=== PATIENT | male | born 1955 | race Caucasian/White ===

== ENCOUNTER → 2017-02-04 | Outpatient (CLI) | payer BC ==
[2017-02-04 10:06] LABS: ALANINE AMINOTRANSFERASE 27 IU/L (13-61); ALBUMIN 4.2 g/dL (3.4-5.0); ANION GAP 13; CALCIUM 8.6 mg/dL (8.5-10.1); CARBON DIOXIDE 24 mEq/L (21-32); CHLORIDE 106 mEq/L (98-107); CREATINE KINASE 382 IU/L (39-308); HDL CHOLESTEROL 53 mg/dL (40-59); INDEX HEMOLYSI 1 (1-3); INDEX ICTERIC 1 (1-4); INDEX LIPEMIC 1 (1-3); LDL CHOLESTEROL 102 mg/dL (5-100); TRIGLYCERIDE 143 mg/dL (0-150); UREA NITROGEN BLOOD 18 mg/dL (7-21); eGFR > 60 mL/min (>60)
== END ==
LOC: LAB 09:17
PROVIDERS: ATTEND Specialist
DX: I11.9 Hypertensive heart disease without heart failure (principal); I25.82 Chronic total occlusion of coronary artery; E78.2 Mixed hyperlipidemia; R94.31 Abnormal electrocardiogram [ECG] [EKG]
CPT/HCPCS: 36415; 80053; 80061; 82550

== ENCOUNTER → 2017-05-13 | Outpatient (CLI) | payer BC ==
[2017-05-13 13:02] LABS: CARBON DIOXIDE 24 mEq/L (21-32); CHLORIDE 105 mEq/L (98-107); CREATINE KINASE 374 IU/L (39-308); HDL CHOLESTEROL 52 mg/dL (40-59); LDL CHOLESTEROL 89 mg/dL (5-100)
== END | disposition home or self-care (01) ==
LOC: LAB 11:44
PROVIDERS: ATTEND Specialist
DX: I11.9 Hypertensive heart disease without heart failure (principal); I25.82 Chronic total occlusion of coronary artery; E78.2 Mixed hyperlipidemia
CPT/HCPCS: 36415; 80053; 80061; 82550

== ENCOUNTER → 2017-07-18 | Outpatient (CLI) | payer BC ==
[2017-07-18 08:53] LABS: CARBON DIOXIDE 23 mEq/L (21-32); CHLORIDE 107 mEq/L (98-107); HDL CHOLESTEROL 48 mg/dL (40-59); LDL CHOLESTEROL 89 mg/dL (5-100)
== END | disposition home or self-care (01) ==
LOC: LAB 08:08
PROVIDERS: ATTEND Internal Medicine Critical Care Medicine
DX: I11.9 Hypertensive heart disease without heart failure (principal); E78.2 Mixed hyperlipidemia; I25.10 Atherosclerotic heart disease of native coronary artery without angina pectoris
CPT/HCPCS: 36415; 80053; 80061

== ENCOUNTER → 2017-08-12 | Outpatient (CLI) | payer BC | END | disposition home or self-care (01) | LOC: LAB 08:42 | PROVIDERS: ATTEND Internal Medicine Critical Care Medicine | DX: I10 Essential (primary) hypertension (principal); E78.5 Hyperlipidemia, unspecified; N40.0 Benign prostatic hyperplasia without lower urinary tract symptoms | CPT/HCPCS: 36415; 80061; 80076; 83036 ==

== ENCOUNTER → 2017-09-19 | Outpatient (CLI) | payer BC ==
[2017-09-19 09:51] LABS: CARBON DIOXIDE 27 mEq/L (21-32); CHLORIDE 105 mEq/L (98-107); HDL CHOLESTEROL 52 mg/dL (40-59); LDL CHOLESTEROL 76 mg/dL (5-100)
== END | disposition home or self-care (01) ==
LOC: LAB 09:01
PROVIDERS: ATTEND Specialist
DX: I10 Essential (primary) hypertension (principal)
CPT/HCPCS: 36415; 80053; 80061

== ENCOUNTER → 2018-01-28 | Outpatient (CLI) | payer BC ==
[2018-01-28 09:49] LABS: BASOPHILS % 0.5 % (0.0-2.0); EOSINOPHILS % 3.4 % (0.0-5.0); HEMATOCRIT. 42.2 % (42.0-52.0); HEMOGLOBIN. 14.7 g/dL (14.0-18.0); LYMPHOCYTES % 32.5 % (20.0-50.0); MEAN CORPUSCULAR HEMOGLOBIN 31.5 pg (28.0-32.0); MEAN CORPUSCULAR VOLUME 90.6 fL (80.0-94.0); MEAN PLATELET VOLUME 7.5 fl (7.4-10.4); MONOCYTES % 8.3 % (2.0-8.0); NEUTROPHILS % 55.3 % (40.0-76.0); PLATELET 279 x1000/uL (130-400); RED BLOOD CELL COUNT 4.65 mill/uL (4.7-6.1); RED CELL DISTRIBUTION WIDTH 13.8 % (11.6-14.6)
[2018-01-28 10:14] LABS: CHLORIDE 107 mEq/L (98-107)
[2018-01-28 10:23] LABS: LDL CHOLESTEROL 69 mg/dL (5-100)
[2018-01-28 10:25] LABS: HDL CHOLESTEROL 53 mg/dL (40-59)
[2018-01-28 10:26] LABS: T4 FREE 1.46 ng/dL (0.76-1.46)
== END | disposition home or self-care (01) ==
LOC: LAB 09:23
PROVIDERS: ATTEND Specialist
DX: E78.2 Mixed hyperlipidemia (principal); E03.9 Hypothyroidism, unspecified; I25.10 Atherosclerotic heart disease of native coronary artery without angina pectoris; I11.9 Hypertensive heart disease without heart failure
CPT/HCPCS: 36415; 80053; 80061; 84439; 84443; 84481; 85025

== ENCOUNTER → 2019-10-08 | Outpatient (CLI) | payer BC ==
[2019-10-08 12:50] LABS: BASOPHILS % 2.1 % (0.0-2.0); EOSINOPHILS % 2.7 % (0.0-5.0); HEMATOCRIT. 38.4 % (42.0-52.0); LYMPHOCYTES % 33.9 % (20.0-50.0); MEAN CORPUSCULAR HEMOGLOBIN 31.5 pg (28.0-32.0); MEAN CORPUSCULAR VOLUME 92.7 fL (80.0-94.0); MEAN PLATELET VOLUME 7.4 fl (7.4-10.4); MONOCYTES % 8.9 % (2.0-8.0); NEUTROPHILS % 52.4 % (40.0-76.0); PLATELET 261 x1000/uL (130-400); RED BLOOD CELL COUNT 4.14 mill/uL (4.7-6.1); RED CELL DISTRIBUTION WIDTH 13.1 % (11.6-14.6)
[2019-10-08 12:55] LABS: CHLORIDE 107 mEq/L (98-107)
[2019-10-08 13:05] LABS: LDL CHOLESTEROL 77 mg/dL (5-100)
[2019-10-08 13:06] LABS: HDL CHOLESTEROL 50 mg/dL (40-59)
[2019-10-08 13:08] LABS: CLARITY URINE CLEAR (CLEAR); COLOR URINE YELLOW (YELLOW); KETONES URINE NEGATIVE (NEGATIVE); LEUKOCYTE ESTERASE URINE NEGATIVE (NEGATIVE); NITRITE URINE NEGATIVE (NEGATIVE); OCCULT BLOOD URINE NEGATIVE (NEGATIVE); PH URINE 5.5 (4.5-8.0); PROTEIN URINE NEGATIVE (NEGATIVE); SPECIFIC GRAVITY URINE 1.012 (1.005-1.030); UROBILINOGEN URINE 0.2 E.U./dL (0.2-1.0)
== END | disposition home or self-care (01) ==
LOC: LAB 11:58
PROVIDERS: ATTEND Family Medicine Adult Medicine
DX: N39.0 Urinary tract infection, site not specified (principal)
CPT/HCPCS: 36415; 80048; 80061; 80076; 81003; 83036; 84153; 84443; 85025; G0103

== ENCOUNTER → 2019-11-26 | Outpatient (CLI) | payer BC ==
[2019-11-26 13:28] LABS: CHLORIDE 110 mEq/L (98-107)
== END | disposition home or self-care (01) ==
LOC: LAB 08:03
PROVIDERS: ATTEND Urology
DX: R31.0 Gross hematuria (principal)
CPT/HCPCS: 36415; 80053; 84153; G0103

== ENCOUNTER → 2019-12-21 | Outpatient (CLI) | payer BC | END | disposition home or self-care (01) | LOC: CT 12:58 | PROVIDERS: ATTEND Urology | DX: N40.0 Benign prostatic hyperplasia without lower urinary tract symptoms (principal); R31.0 Gross hematuria | CPT/HCPCS: 74178; Q9967 ==

== ENCOUNTER → 2020-07-27 | Outpatient (CLI) | payer BC ==
[2020-07-27 10:37] LABS: CHLORIDE 108 mEq/L (98-107)
[2020-07-27 10:41] LABS: BASOPHILS % 1.1 % (0.0-2.0); HEMATOCRIT. 42.7 % (42.0-52.0); HEMOGLOBIN. 14.5 g/dL (14.0-18.0); LYMPHOCYTES % 33.1 % (20.0-50.0); MEAN CORPUSCULAR HEMOGLOBIN 31.7 pg (28.0-32.0); MEAN CORPUSCULAR VOLUME 93.4 fL (80.0-94.0); MEAN PLATELET VOLUME 7.6 fl (7.4-10.4); MONOCYTES % 8.6 % (2.0-8.0); NEUTROPHILS % 54.2 % (40.0-76.0); PLATELET 252 x1000/uL (130-400); RED BLOOD CELL COUNT 4.57 mill/uL (4.7-6.1); RED CELL DISTRIBUTION WIDTH 12.9 % (11.6-14.6)
[2020-07-27 10:44] LABS: LDL CHOLESTEROL 92 mg/dL (5-100)
[2020-07-27 10:45] LABS: HDL CHOLESTEROL 50 mg/dL (40-59); TOTAL IRON BINDING CAPACITY 325 ug/dL (250-450)
[2020-07-27 10:48] LABS: T4 FREE 1.48 ng/dL (0.76-1.46)
[2020-07-27 11:17] LABS: FOLIC ACID (FOLATE) SERUM 15.8 ng/mL (>5.38)
[2020-07-27 11:23] LABS: PROSTRATE SPECIFIC AG TOTAL 1.29 ng/mL (0.0-4.0)
== END | disposition home or self-care (01) ==
LOC: LAB 09:57
PROVIDERS: ATTEND Specialist
DX: Z00.00 Encounter for general adult medical examination without abnormal findings (principal); D64.9 Anemia, unspecified
CPT/HCPCS: 36415; 80053; 80061; 82306; 82607; 82728; 82746; 83036; 83540; 83550; 84153; 84439; 84443; 84481; 85025; G0103

== ENCOUNTER → 2020-09-18 | Outpatient (CLI) | payer BC ==
[~2020-09-18] MED LIST: ATOR40TA70 PO; BENZ100C86 PO; LEVO125T PO; VERA240C2 PO
[2020-09-18 15:37] LABS: BASOPHILS % 0.3 % (0.0-2.0); HEMATOCRIT. 40.6 % (42.0-52.0); HEMOGLOBIN. 13.6 g/dL (14.0-18.0); LYMPHOCYTES % 11.7 % (20.0-50.0); MEAN CORPUSCULAR HEMOGLOBIN 30.9 pg (28.0-32.0); MEAN CORPUSCULAR VOLUME 91.9 fL (80.0-94.0); MEAN PLATELET VOLUME 8.1 fl (7.4-10.4); MONOCYTES % 8.1 % (2.0-8.0); NEUTROPHILS % 79.9 % (40.0-76.0); PLATELET 215 x1000/uL (130-400); RED BLOOD CELL COUNT 4.42 mill/uL (4.7-6.1); RED CELL DISTRIBUTION WIDTH 13.1 % (11.6-14.6)
[2020-09-18 15:49] LABS: CHLORIDE 101 mEq/L (98-107)
[2020-09-18 15:55] LABS: LDL CHOLESTEROL 103 mg/dL (5-100)
[2020-09-18 15:56] LABS: HDL CHOLESTEROL 39 mg/dL (40-59)
[2020-09-18 15:59] LABS: T4 FREE 1.59 ng/dL (0.76-1.46)
[2020-09-18 16:04] LABS: TOTAL IRON BINDING CAPACITY 236 ug/dL (250-450)
[2020-09-18 16:21] LABS: FOLIC ACID (FOLATE) SERUM 19.7 ng/mL (>5.38)
== END | disposition home or self-care (01) ==
LOC: RAD 14:39
PROVIDERS: ATTEND Family Medicine Adult Medicine
DX: Z00.00 Encounter for general adult medical examination without abnormal findings (principal); J06.9 Acute upper respiratory infection, unspecified; E11.8 Type 2 diabetes mellitus with unspecified complications; D64.9 Anemia, unspecified
CPT/HCPCS: 36415; 71045; 80053; 80061; 82306; 82607; 82728; 82746; 83036; 83540; 83550; 84439; 84443; 84481; 85025; 87804

== ENCOUNTER 2020-09-19 13:10 | Inpatient (IN) | payer BC ==
[~2020-09-19] VITALS: Ht 177.8 cm; Wt 81.8 kg
[2020-09-19] MEDS ORDERED: SODIUM CHLORIDE 0.9% 1,000 ML IV ONE (15:15)
[2020-09-19] MEDS ORDERED: DEXAMETHASONE 10 MG/ML VIAL IV ONE (15:15)
[2020-09-19] MEDS ORDERED: AZITHROMYCIN 500 MG in DEXT 5% WATER 250 ML IV ONE (15:15)
[2020-09-19] MEDS ORDERED: CEFTRIAXONE 1 G PREMIX 50 ML IV ONE (15:15)
[2020-09-19] MEDS ORDERED: ACETAMINOPHEN 325MG TABLET PO ONE (15:30)
[2020-09-19 15:34] LABS: BG BASE EXCESS -3.2 mmol/L (-2.0-2.0); BG CARBOXYHEMOGLOBIN 0.4 % (0.5-1.5); BG DEOXYHEMOGLOBIN 16.1 % (0.0-5.0); BG FRACTION INSPIRED OXYGEN 21; BG HCO3 ACT 17.5 mmol/L (22.0-26.0); BG METHEMOGLOBIN 0.1 % (0.0-1.5); BG OXYGEN SATURATION 83.8 % (92.0-98.5); BG OXYHEMOGLOBIN 83.4 % (94.0-97.0); BG PCO2 21.7 mmHg (35.0-45.0); BG PH 7.524 (7.350-7.450); BG PO2 44.6 mmHg (75.0-100.0); BG SAMPLE SITE RIGHT BRACHIAL; BG TOTAL HEMOGLOBIN 13.4 g/dL (12.0-18.0); BG VENT MODE ROOM AIR
[2020-09-19 15:39] LABS: BASOPHILS % 0.3 % (0.0-2.0); HEMATOCRIT. 42.2 % (42.0-52.0); HEMOGLOBIN. 13.9 g/dL (14.0-18.0); LYMPHOCYTES % 11.6 % (20.0-50.0); MEAN CORPUSCULAR HEMOGLOBIN 30.6 pg (28.0-32.0); MEAN CORPUSCULAR VOLUME 92.9 fL (80.0-94.0); MEAN PLATELET VOLUME 8.4 fl (7.4-10.4); MONOCYTES % 5.9 % (2.0-8.0); NEUTROPHILS % 82.2 % (40.0-76.0); PLATELET 267 x1000/uL (130-400); RED BLOOD CELL COUNT 4.55 mill/uL (4.7-6.1)
[2020-09-19 15:44] LABS: CHLORIDE 100 mEq/L (98-107)
[2020-09-19 15:53] LABS: CREATINE KINASE 754 IU/L (39-308)
[2020-09-19 15:56] LABS: D-DIMER 0.43 mg/L FEU (<0.50); PROTHROMBIN TIME 10.4 sec (9.6-11.0)
[2020-09-19] MEDS ORDERED: CEFTRIAXONE 1 G PREMIX 50 ML IV SCH (17:00)
[2020-09-19] MEDS ORDERED: AZITHROMYCIN 500 MG in DEXT 5% WATER 250 ML IV SCH (17:00)
[2020-09-19] MEDS: ALBUTEROL 6.7GM HFA INHALER ORI SCH (17:43)
[2020-09-19] MEDS: ZINC SULFATE 220 MG ( 50 ) CAPSULE PO SCH (19:30)
[2020-09-19] MEDS: FAMOTIDINE 20MG TABLET PO SCH (21:00)
[2020-09-20] VITALS: BP 131/77
[2020-09-20 00:23] VITALS: BP 131/77
[2020-09-20] MEDS ORDERED: ATOR40TA70 PO (00:58)
[2020-09-20] MEDS ORDERED: VERA240C2 PO (00:58)
[2020-09-20] MEDS ORDERED: BENZ100C86 PO (00:58)
[2020-09-20] MEDS ORDERED: LEVO125T PO (00:58)
[2020-09-20] MEDS: ALBUTEROL 6.7GM HFA INHALER ORI SCH ×4 (01:12→20:20)
[2020-09-20 04:00] VITALS: BP 129/73
[2020-09-20] MEDS ORDERED: CLONIDINE 0.1MG TABLET PO PRN (04:00)
[2020-09-20] MEDS ORDERED: HYDROCODONE/ACETAMINOPHEN 5/325MG TABLET PO PRN (04:00)
[2020-09-20] MEDS ORDERED: ACETAMINOPHEN 325MG TABLET PO PRN (04:00)
[2020-09-20] MEDS ORDERED: VERAPAMIL HCL PO SCH (04:15)
[2020-09-20] MEDS: LEVOTHYROXINE SODIUM 125MCG TABLET PO SCH (05:55)
[2020-09-20 08:00] VITALS: BP 135/86
[2020-09-20] MEDS: ZINC SULFATE 220 MG ( 50 ) CAPSULE PO SCH (08:56)
[2020-09-20] MEDS: VERAPAMIL HCL 120MG TABLET PO SCH (08:56)
[2020-09-20] MEDS: DEXAMETHASONE 10 MG/ML VIAL IV SCH (08:57)
[2020-09-20] MEDS: ENOXAPARIN 40MG/0.4ML SYR SUBCUT SCH ×2 (09:00→16:01)
[2020-09-20 12:00] VITALS: BP 120/73
[2020-09-20 12:36] LABS: CHLORIDE 106 mEq/L (98-107)
[2020-09-20 12:37] LABS: HEMOGLOBIN. 12.3 g/dL (14.0-18.0); MEAN CORPUSCULAR HEMOGLOBIN 31.3 pg (28.0-32.0); MEAN CORPUSCULAR VOLUME 91.4 fL (80.0-94.0); MEAN PLATELET VOLUME 8.4 fl (7.4-10.4); PLATELET 237 x1000/uL (130-400); RED BLOOD CELL COUNT 3.94 mill/uL (4.7-6.1)
[2020-09-20 12:45] LABS: T4 FREE 1.69 ng/dL (0.76-1.46)
[2020-09-20] MEDS: CEFTRIAXONE 1,000 MG in DEXTROSE 5% WATER 50 ML IV SCH (13:12)
[2020-09-20] MEDS ORDERED: AZITHROMYCIN 500MG in DEXTROSE 5% WATER 250ML IV SCH (14:00)
[2020-09-20] MEDS: CHOLECALCIFEROL (D3) 1000 UNIT TABLET PO SCH (15:36)
[2020-09-20 20:00] VITALS: BP 132/79
[2020-09-20] MEDS: FAMOTIDINE 20MG TABLET PO SCH (20:55)
[2020-09-20] MEDS: DOXYCYCLINE HYCLATE 100MG CAPSULE PO SCH (20:56)
[2020-09-20] MEDS ORDERED: ATORVASTATIN CALCIUM 40MG TABLET PO SCH (21:00)
[2020-09-21 00:28] VITALS: BP 139/82
[2020-09-21 04:00] VITALS: BP 151/78
[2020-09-21] MEDS: ALBUTEROL 6.7GM HFA INHALER ORI SCH ×3 (06:00→11:34)
[2020-09-21] MEDS: LEVOTHYROXINE SODIUM 125MCG TABLET PO SCH (06:16)
[2020-09-21 08:00] VITALS: BP 157/64
[2020-09-21 08:20] LABS: PLATELET ESTIMATE NORMAL
[2020-09-21] MEDS: DEXAMETHASONE 10 MG/ML VIAL IV SCH (08:34)
[2020-09-21] MEDS: DOXYCYCLINE HYCLATE 100MG CAPSULE PO SCH (08:35)
[2020-09-21] MEDS: CHOLECALCIFEROL (D3) 1000 UNIT TABLET PO SCH (08:35)
[2020-09-21] MEDS: ZINC SULFATE 220 MG ( 50 ) CAPSULE PO SCH (08:35)
[2020-09-21] MEDS: VERAPAMIL HCL 120MG TABLET PO SCH (08:35)
[2020-09-21] MEDS: ENOXAPARIN 40MG/0.4ML SYR SUBCUT SCH (08:36)
[2020-09-21] MEDS ORDERED: REMDESIVIR 200 MG in SODIUM CHLORIDE 0.9% 250 ML IV ONE (10:15)
[2020-09-21] MEDS ORDERED: ALBU6.7H9 INH (11:20)
[2020-09-21] MEDS ORDERED: DEXA6TAB MT (11:20)
[2020-09-21 12:00] VITALS: BP 127/75
[2020-09-21] MEDS ORDERED: DOXY100C2 PO (12:00)
[2020-09-21 12:42] VITALS: BP 124/75
[2020-09-21] MEDS: CEFTRIAXONE 1,000 MG in DEXTROSE 5% WATER 50 ML IV SCH (12:54)
[2020-09-21 13:14] LABS: HEPATITIS B SURFACE ANTIGEN NEGATIVE
[2020-09-21 13:43] LABS: HEPATITIS A AB IGM NEGATIVE (NEGATIVE)
[2020-09-21] MEDS ORDERED: DOXAZOSIN MESYLATE 2MG TABLET PO SCH (21:00)
[2020-09-22] MEDS ORDERED: LEVOTHYROXINE SODIUM 125MCG TABLET PO SCH (06:40)
[2020-09-22] MEDS ORDERED: REMDESIVIR 100 MG in SODIUM CHLORIDE 0.9% 250 ML IV SCH (10:15)
== END 2020-09-21 15:55 | disposition home or self-care (01) | DRG 871 ==
LOC: ER 13:10 → MICUSO 15:05 → EDBEDREQ 15:06 → EDBEDREQSVC 15:11 → 7EST 23:41
PROVIDERS: ADMIT Family Medicine Adult Medicine; ATTEND Family Medicine Adult Medicine
DX: A41.89 Other specified sepsis (principal); U07.1 COVID-19; J96.01 Acute respiratory failure with hypoxia; J12.89 Other viral pneumonia; E44.0 Moderate protein-calorie malnutrition; E87.1 Hypo-osmolality and hyponatremia; E87.3 Alkalosis; D64.9 Anemia, unspecified; E03.9 Hypothyroidism, unspecified; R00.1 Bradycardia, unspecified; E78.5 Hyperlipidemia, unspecified; I10 Essential (primary) hypertension; D72.810 Lymphocytopenia; E05.90 Thyrotoxicosis, unspecified without thyrotoxic crisis or storm; N40.0 Benign prostatic hyperplasia without lower urinary tract symptoms; Z79.899 Other long term (current) drug therapy; Z82.49 Family history of ischemic heart disease and other diseases of the circulatory system; Z87.891 Personal history of nicotine dependence; Z68.25 Body mass index [BMI] 25.0-25.9, adult; Z79.51 Long term (current) use of inhaled steroids
CPT/HCPCS: 36415; 36600; 71045; 80053; 80076; 82375; 82550; 82728; 82805; 83605; 83615; 83880; 84145; 84439; 84443; 84484; 85025; 85379; 85384; 86140; 86705; 86709; 86803; 86850; 86900; 87340; 87635; 87804; 93005; 99291; J0456; J0696; J1100; J1650; J7030; J7040; J7060

== ENCOUNTER → 2020-10-24 | Outpatient (CLI) | payer BC ==
[~2020-10-24] MED LIST changes: +ALBU6.7H9 INH; +DEXA6TAB MT; +DOXY100C2 PO
[2020-10-24 08:53] LABS: BASOPHILS % 1.5 % (0.0-2.0); EOSINOPHILS % 1.7 % (0.0-5.0); HEMATOCRIT. 38.9 % (42.0-52.0); HEMOGLOBIN. 13.2 g/dL (14.0-18.0); LYMPHOCYTES % 32.8 % (20.0-50.0); MEAN CORPUSCULAR VOLUME 91.5 fL (80.0-94.0); MONOCYTES % 9.4 % (2.0-8.0); NEUTROPHILS % 54.6 % (40.0-76.0); PLATELET 396 x1000/uL (130-400); RED BLOOD CELL COUNT 4.25 mill/uL (4.7-6.1); RED CELL DISTRIBUTION WIDTH 13.8 % (11.6-14.6)
[2020-10-24 09:13] LABS: CHLORIDE 109 mEq/L (98-107)
[2020-10-24 09:21] LABS: TOTAL IRON BINDING CAPACITY 330 ug/dL (250-450)
[2020-10-24 09:26] LABS: T4 FREE 1.26 ng/dL (0.76-1.46)
[2020-10-24 09:50] LABS: FOLIC ACID (FOLATE) SERUM 9.6 ng/mL (>5.38)
== END | disposition home or self-care (01) ==
LOC: LAB 08:16
PROVIDERS: ATTEND Specialist
DX: Z00.00 Encounter for general adult medical examination without abnormal findings (principal)
CPT/HCPCS: 36415; 80053; 82248; 82306; 82607; 82728; 82746; 83036; 83540; 83550; 84439; 84443; 84481; 85025

== ENCOUNTER → 2021-05-16 | Outpatient (CLI) | payer BC ==
[2021-05-16 08:44] LABS: BASOPHILS % 1.8 % (0.0-2.0); EOSINOPHILS % 2.4 % (0.0-5.0); LYMPHOCYTES % 30.5 % (20.0-50.0); MEAN CORPUSCULAR HEMOGLOBIN 30.9 pg (28.0-32.0); MEAN PLATELET VOLUME 7.1 fl (7.4-10.4); MONOCYTES % 7.5 % (2.0-8.0); NEUTROPHILS % 57.8 % (40.0-76.0); PLATELET 263 x1000/uL (130-400); RED BLOOD CELL COUNT 4.51 mill/uL (4.7-6.1); RED CELL DISTRIBUTION WIDTH 13.3 % (11.6-14.6)
[2021-05-16 09:21] LABS: CHLORIDE 108 mEq/L (98-107)
[2021-05-16 09:27] LABS: C REACTIVE PROTEIN QUANT 0.4 mg/L (0.0-3.0)
[2021-05-16 09:28] LABS: LDL CHOLESTEROL 73 mg/dL (5-100)
[2021-05-16 09:29] LABS: HDL CHOLESTEROL 59 mg/dL (40-59); TOTAL IRON BINDING CAPACITY 315 ug/dL (250-450)
[2021-05-16 09:32] LABS: T4 FREE 1.25 ng/dL (0.76-1.46)
[2021-05-16 11:49] LABS: PROSTRATE SPECIFIC AG TOTAL 1.09 ng/mL (0.0-4.0)
== END | disposition home or self-care (01) ==
LOC: LAB 08:21
PROVIDERS: ATTEND Family Medicine Adult Medicine
DX: Z00.00 Encounter for general adult medical examination without abnormal findings (principal)
CPT/HCPCS: 36415; 80053; 80061; 82306; 82607; 82728; 82746; 83036; 83540; 83550; 83735; 84153; 84439; 84443; 85025; 86140; G0103

== ENCOUNTER 2021-07-04 11:48 | Emergency (ER) | payer BC ==
[~2021-07-04] VITALS: Ht 177.8 cm; Wt 92.0 kg
[~2021-07-04 11:48] MED LIST changes: -DOXY100C2 PO; +DOXY100C5 PO
[2021-07-04] MEDS ORDERED: ONDANSETRON 4MG ODT PO ONE (12:30)
[2021-07-04 12:35] LABS: BASOPHILS % 1.8 % (0.0-2.0); EOSINOPHILS % 1.7 % (0.0-5.0); HEMATOCRIT. 38.1 % (42.0-52.0); HEMOGLOBIN. 13.5 g/dL (14.0-18.0); LYMPHOCYTES % 38.8 % (20.0-50.0); MEAN CORPUSCULAR HEMOGLOBIN 32.2 pg (28.0-32.0); MEAN CORPUSCULAR VOLUME 90.6 fL (80.0-94.0); MEAN PLATELET VOLUME 7.2 fl (7.4-10.4); MONOCYTES % 7.9 % (2.0-8.0); NEUTROPHILS % 49.8 % (40.0-76.0); PLATELET 263 x1000/uL (130-400)
[2021-07-04 12:43] LABS: CHLORIDE 108 mEq/L (98-107)
[2021-07-04 13:40] VITALS: BP 142/79
== END 2021-07-04 14:05 | disposition home or self-care (01) ==
LOC: ER 11:48
DX: R55 Syncope and collapse (principal); I10 Essential (primary) hypertension; Z98.890 Other specified postprocedural states
CPT/HCPCS: 36415; 80053; 83880; 84484; 85025; 93005; 99284; Q0162